=== PATIENT | male | born 1965 | race Caucasian/White ===

== ENCOUNTER 2022-07-09 19:25 | Emergency (ER) | payer OTHER ==
[~2022-07-09] VITALS: Ht 180.3 cm; Wt 95.3 kg
[2022-07-09] MEDS ORDERED: ULTRAM 50MG50 MG PO (20:41)
== END 2022-07-09 20:44 | disposition home or self-care (01) ==
LOC: ER 19:30
DX: S00.83XA Contusion of other part of head, initial encounter (principal); H91.92 Unspecified hearing loss, left ear; V43.52XA Car driver injured in collision with other type car in traffic accident, initial encounter; Y92.488 Other paved roadways as the place of occurrence of the external cause
CPT/HCPCS: 70450; 99283